=== PATIENT | female | born 2000 | race Caucasian/White ===

== ENCOUNTER → 2020-08-21 | Outpatient (CLI) | payer OTHER ==
[~2020-08-21] VITALS: Ht 160 cm; Wt 82.3 kg
[~2020-08-21] MED LIST: ADDERALL XR 3030 MG PO; AMITRIPTYLINE H10 M1 PO; CATAPRES-TTS 11 EACH TRANSDERM; NEURONTIN 300M300 M2 PO; VITAMIN C500 M2 PO
[2020-08-21 09:02] VITALS: BP 134/90
--- NOTE | 2020-08-21 09:23 | NUR ---
Pain Clinic Assessment: 1. History of Osteoarthritis: NONE History of Rheumatoid Arthritis: NONE 2. Height: 5 ft. 3 in. 160.0 cm. Weight: 181.4 lb. oz. 82.283 kg. Patient's BMI: 32.1 3. Vital Signs: BP: 134/90 Pulse: 113 Resp: 20 Temp: 02 Sat: 98 ECG Mon: 4. Pain Intensity: 6 5. Fall Risk: Dizziness: N Needs help standing or walking: N Fallen in the last 3 months: Y Fall risk comments: 6. Patient on Blood Thinner: None 7. History of Hypertension: N 8. Opioid Therapy greater than 6 weeks: N Opiate Contract Signed: 9. Risk Assessment Tool Provided: 2 - LOW RISK 10. Functional Assessment Tool: 11. Recreational Drug Use: Never Drug Type: Tobacco Use: Never Smoker Tobacco Type: Amount or Packs/day: How Many Years: Alcohol Use: Yes Frequency: Weekly Quant: 1
--- NOTE | 2020-08-21 09:29 | NUR ---
Pain Clinic Assessment: 1. History of Osteoarthritis: BILATERAL HIPS History of Rheumatoid Arthritis: NONE 2. Height: 5 ft. 3 in. 160.0 cm. Weight: 181.4 lb. oz. 82.283 kg. Patient's BMI: 32.1 3. Vital Signs: BP: 134/90 Pulse: 113 Resp: 20 Temp: 02 Sat: 98 ECG Mon: 4. Pain Intensity: 6 5. Fall Risk: Dizziness: N Needs help standing or walking: N Fallen in the last 3 months: Y Fall risk comments: 6. Patient on Blood Thinner: None 7. History of Hypertension: N 8. Opioid Therapy greater than 6 weeks: N Opiate Contract Signed: 9. Risk Assessment Tool Provided: 2 - LOW RISK 10. Functional Assessment Tool: 11. Recreational Drug Use: Never Drug Type: Tobacco Use: Never Smoker Tobacco Type: Amount or Packs/day: How Many Years: Alcohol Use: Yes Frequency: Weekly Quant: 1
== END ==
LOC: PAIN 06:47
PROVIDERS: ATTEND Anesthesiology Pain Medicine
DX: S93.401D Sprain of unspecified ligament of right ankle, subsequent encounter (principal); X58.XXXD Exposure to other specified factors, subsequent encounter

== ENCOUNTER → 2020-09-06 | Outpatient (CLI) | payer OTHER ==
[~2020-09-06] VITALS: Ht 160 cm; Wt 82.6 kg
[2020-09-06 09:17] VITALS: BP 119/79
--- NOTE | 2020-09-06 09:25 | NUR ---
Pain Clinic Assessment: 1. History of Osteoarthritis: * BILATERAL HIPS History of Rheumatoid Arthritis: NONE 2. Height: 5 ft. 3 in. 160.0 cm. Weight: 182.0 lb. oz. 82.555 kg. Patient's BMI: 32.2 3. Vital Signs: BP: 119/79 Pulse: 96 Resp: 14 Temp: 02 Sat: 100 ECG Mon: 4. Pain Intensity: 4 5. Fall Risk: Dizziness: N Needs help standing or walking: N Fallen in the last 3 months: Y Fall risk comments: 6. Patient on Blood Thinner: None 7. History of Hypertension: N 8. Opioid Therapy greater than 6 weeks: N Opiate Contract Signed: 9. Risk Assessment Tool Provided: 2 - LOW RISK 10. Functional Assessment Tool: 11. Recreational Drug Use: Never Drug Type: Tobacco Use: Never Smoker Tobacco Type: Amount or Packs/day: How Many Years: Alcohol Use: Yes Frequency: Quant:
== END | disposition home or self-care (01) ==
LOC: PAIN 06:54
PROVIDERS: ATTEND Anesthesiology Pain Medicine
DX: M25.561 Pain in right knee (principal); G90.521 Complex regional pain syndrome I of right lower limb; M16.0 Bilateral primary osteoarthritis of hip; Z96.643 Presence of artificial hip joint, bilateral; Z98.890 Other specified postprocedural states; Z79.899 Other long term (current) drug therapy; Z90.49 Acquired absence of other specified parts of digestive tract

== ENCOUNTER → 2020-09-13 | Outpatient (CLI) | payer OTHER ==
[~2020-09-13] VITALS: Ht 160 cm; Wt 82.6 kg
[~2020-09-13] MED LIST changes: +NEURONTIN 400400 M1 PO; +TRAMADOL 50 MG50 MG PO
[2020-09-13 08:28] VITALS: BP 132/85
--- NOTE | 2020-09-13 08:38 | NUR ---
ALERT - Tad Score <= 18: Add Problem PRESSURE ULCER RISK to Patient's Care Plan
--- NOTE | 2020-09-13 08:41 | NUR ---
Pain Clinic Assessment: 1. History of Osteoarthritis: * BILATERAL HIPS History of Rheumatoid Arthritis: NONE 2. Height: 5 ft. 3 in. 160.0 cm. Weight: 182.0 lb. oz. 82.555 kg. Patient's BMI: 32.2 3. Vital Signs: BP: 132/85 Pulse: 101 Resp: 14 Temp: 02 Sat: 98 ECG Mon: 4. Pain Intensity: 5 NOW 7 IN EVENING 5. Fall Risk: Dizziness: N Needs help standing or walking: N Fallen in the last 3 months: N Fall risk comments: 6. Patient on Blood Thinner: None 7. History of Hypertension: N 8. Opioid Therapy greater than 6 weeks: N Opiate Contract Signed: 9. Risk Assessment Tool Provided: 2 - LOW RISK 10. Functional Assessment Tool: 11. Recreational Drug Use: Never Drug Type: Tobacco Use: Never Smoker Tobacco Type: Amount or Packs/day: How Many Years: Alcohol Use: Yes Frequency: Quant:
== END ==
LOC: PAIN 06:55
PROVIDERS: ATTEND Anesthesiology Pain Medicine
DX: M79.671 Pain in right foot (principal); G89.4 Chronic pain syndrome; Z88.8 Allergy status to other drugs, medicaments and biological substances; Z79.899 Other long term (current) drug therapy

== ENCOUNTER → 2020-09-25 | Outpatient (CLI) | payer OTHER ==
[~2020-09-25] VITALS: Ht 160 cm; Wt 82.2 kg
[~2020-09-25] MED LIST changes: +AMITRIPTYLINE H25 M2 PO
[2020-09-25 09:29] VITALS: BP 126/88
--- NOTE | 2020-09-25 09:39 | NUR ---
Pain Clinic Assessment: 1. History of Osteoarthritis: * BILATERAL HIPS History of Rheumatoid Arthritis: NONE 2. Height: 5 ft. 3 in. 160.0 cm. Weight: 181.2 lb. oz. 82.192 kg. Patient's BMI: 32.1 3. Vital Signs: BP: 126/88 Pulse: 103 Resp: 14 Temp: 02 Sat: 100 ECG Mon: 4. Pain Intensity: 5 5. Fall Risk: Dizziness: N Needs help standing or walking: N Fallen in the last 3 months: N Fall risk comments: 6. Patient on Blood Thinner: None 7. History of Hypertension: N 8. Opioid Therapy greater than 6 weeks: N Opiate Contract Signed: 9. Risk Assessment Tool Provided: 2 - LOW RISK 10. Functional Assessment Tool: 11. Recreational Drug Use: Never Drug Type: Tobacco Use: Never Smoker Tobacco Type: Amount or Packs/day: How Many Years: Alcohol Use: Yes Frequency: Special Occasions Quant: 1-2
== END | disposition home or self-care (01) ==
LOC: PAIN 06:50
PROVIDERS: ATTEND Anesthesiology Pain Medicine
DX: M25.571 Pain in right ankle and joints of right foot (principal); G90.521 Complex regional pain syndrome I of right lower limb; M19.90 Unspecified osteoarthritis, unspecified site; Z98.890 Other specified postprocedural states; Z79.899 Other long term (current) drug therapy; Z90.49 Acquired absence of other specified parts of digestive tract

== ENCOUNTER → 2020-10-02 | Outpatient (CLI) | payer OTHER ==
[~2020-10-02] VITALS: Ht 160 cm; Wt 82.6 kg
[2020-10-02 09:24] VITALS: BP 116/77
--- NOTE | 2020-10-02 09:33 | NUR ---
Pain Clinic Assessment: 1. History of Osteoarthritis: * BILATERAL HIPS History of Rheumatoid Arthritis: NONE 2. Height: 5 ft. 3 in. 160.0 cm. Weight: 182.0 lb. oz. 82.555 kg. Patient's BMI: 32.2 3. Vital Signs: BP: 116/77 Pulse: 91 Resp: 16 Temp: 02 Sat: 100 ECG Mon: 4. Pain Intensity: 0 5. Fall Risk: Dizziness: N Needs help standing or walking: N Fallen in the last 3 months: N Fall risk comments: 6. Patient on Blood Thinner: None 7. History of Hypertension: N 8. Opioid Therapy greater than 6 weeks: N Opiate Contract Signed: 9. Risk Assessment Tool Provided: 2 - LOW RISK 10. Functional Assessment Tool: 11. Recreational Drug Use: Never Drug Type: Tobacco Use: Never Smoker Tobacco Type: Amount or Packs/day: How Many Years: Alcohol Use: Yes Frequency: Special Occasions Quant:
== END ==
LOC: PAIN 06:47
PROVIDERS: ATTEND Anesthesiology Pain Medicine
DX: M25.571 Pain in right ankle and joints of right foot (principal); G89.4 Chronic pain syndrome